=== PATIENT | male | born 1980 | race Caucasian/White ===

== ENCOUNTER → 2018-11-19 10:24 | Outpatient (CLI) | payer OTHER, SELFPAY ==
[2018-11-19 12:29] LABS: Free T4, Direct Thyroxine 1.01 ng/dL (0.78-2.19)
[2018-11-19 12:44] LABS: Thyroid Stimulating Hormone 2.59 uIU/mL (0.47-4.68)
== END ==
PROVIDERS: Visit Provider Registered Nurse Women's Health Care, Ambulatory
DX: R68.82 Decreased libido (principal); R53.81 Other malaise; Z13.29 Encounter for screening for other suspected endocrine disorder
CPT/HCPCS: 36415; 84403; 84439; 84443

== ENCOUNTER → 2019-09-16 08:13 | Outpatient (CLI) | payer OTHER, SELFPAY ==
[2019-09-16 08:56] LABS: Cholesterol 181 mg/dL (140-199); HDL Cholesterol 19 mg/dL (40-60); LDL Cholesterol Calculated 105 mg/dL (<100); Triglycerides 284 mg/dL (35-150)
[2019-09-16 09:08] LABS: Hemoglobin A1C% w Est Avg Glu 5.1 % (4.0-6.0)
== END ==
PROVIDERS: Visit Provider Registered Nurse Women's Health Care, Ambulatory
DX: Z13.220 Encounter for screening for lipoid disorders (principal); Z13.1 Encounter for screening for diabetes mellitus
CPT/HCPCS: 36415; 80061; 83036